=== PATIENT | female | born 1960 | race Caucasian/White ===

== ENCOUNTER 2019-03-24 05:36 | Inpatient (IN) | payer BC, OTHER ==
[2019-03-07 13:17] LABS: HEMATOCRIT 38.8 % (37.0-47.0); HEMOGLOBIN 12.6 gm/dL (12.0-15.0); MCH 30.3 pg (26.0-34.0); MCHC 32.6 g/dL (28.0-37.0); MCV 93.2 fL (80.0-100.0); RBC 4.16 mil/uL (4.20-5.00); RDW 13.4 % (10.5-14.5); WBC 5.3 thou/uL (4.0-11.0)
[2019-03-07 13:23] LABS: URINE BILIRUBIN NEGATIVE (Negative); URINE BLOOD NEGATIVE (Negative); URINE CLARITY CLEAR; URINE COLOR YELLOW; URINE GLUCOSE-RANDOM* NEGATIVE (Negative); URINE KETONES NEGATIVE (Negative); URINE LEUKOCYTES-REFLEX NEGATIVE (Negative); URINE NITRITE-REFLEX NEGATIVE (Negative); URINE PROTEIN (DIPSTICK) NEGATIVE (Negative); URINE SPECIFIC GRAVITY <= 1.005 (1.005-1.035); URINE UROBILINOGEN 0.2 E.U./dl (0.2-1.0)
[2019-03-07 13:24] LABS: ALBUMIN 3.8 g/dL (3.4-5.0); CALCIUM 9.5 mg/dL (8.5-10.1); CREATININE 0.7 mg/dL (0.6-1.0); POTASSIUM 4.1 mmol/L (3.5-5.1)
[2019-03-07 13:25] LABS: INR 1.1; PROTIME 11.2 Seconds (9.3-11.4)
[~2019-03-24] VITALS: Ht 121.9 cm; Wt 80.3 kg
[~2019-03-24 05:36] MED LIST: MIRAPEX1 MG PO; MOBIC15 MG PO; NORCO 5-325 TA1 EAC1 PO; PROAIR DIGIHAL90 MCG INH; PROZAC40 MG PO
[2019-03-24 06:10] VITALS: BP 161/85
--- NOTE | 2019-03-24 10:46 | O ---
[facility] [place] [address] OPERATIVE REPORT Name: MELINA HUERTA Room #: 150-1 ADM IN M.R.#: [id number] Admission: 03/24/19 Attend Phys: Carl Borrego MD Discharge: Date of : 56 Report #: [id number] THIS REPORT FOR: //name// CC: Carl Borrego Quoc Box DATE OF SERVICE: 03/24/2019 PREOPERATIVE DIAGNOSIS: End-stage degenerative arthritis, left hip. POSTOPERATIVE DIAGNOSIS: End-stage degenerative arthritis, left hip. PROCEDURE: Left total hip arthroplasty. SURGEON: Carl Borrego MD INDICATIONS: This 58-year-old female has chronic pain management issues with fibromyalgia, but also has severe degenerative arthritis in multiple joints. The left hip is the most severe at this point and she has decided to go ahead with left total hip arthroplasty. DESCRIPTION OF PROCEDURE: The patient was taken to the operating room where she was placed under general anesthesia. Prophylactic intravenous antibiotics were administered. She was turned to the right lateral decubitus position. The left hip, thigh and leg were meticulously prepped and draped. A slightly curving posterolateral skin incision was made centered over the greater trochanter. This was carried through fascia exposing the posterior aspect of the hip joint. The short external rotators and capsule were taken down and preserved and tagged with several #1 FiberWire sutures. The hip was dislocated. Marked degenerative change on the femoral head and acetabulum was noted. A femoral neck osteotomy was performed and the canal was opened with reamers and hand broaches. The Morillo and Nephew hip system was utilized. A size 14 Synergy porous stem seemed to fit most appropriately. The calcar was trimmed down to an appropriate level. The trial broach was removed and attention directed to the acetabulum. Good exposure was established and the acetabulum was sequentially reamed, gradually advancing to a size 52 mm reamer. A Morillo and Nephew size 52 outside diameter three-hole hemispherical StikTite coated shell was inserted. This was positioned in alignment with her true acetabulum, advancing slightly into more anteversion. The cup had good coverage and seemed to be well positioned. It was impacted into place and seated nicely and appeared to be secure. In addition, three screws were placed through the apical holes engaging satisfactory periacetabular bone with good purchase. A 36-mm diameter polyethylene shell was then inserted, placing the 20-degree elevated rim at about the 9 or 10 o'clock posterior position. This seated nicely and appeared to be secure. [facility] [address] [place] [address] OPERATIVE REPORT Name: MELINA HUERTA Room #: 150-1 [facility] IN [facility].#: [id number] Admission: 03/24/19 Attend Phys: Carl Borrego MD Discharge: Date of : 56 Report #: [id number] A trial reduction was then performed. The size 14 stem with a high offset neck angle and an 8 mm neck length seemed to fit most appropriately. This resulted in satisfactory hip stability, range of motion, alignment, and leg length. The trial broach was removed and the permanent Morillo and Nephew size 14 Synergy porous high offset stem was inserted. This was placed in about 15-20 degrees of anteversion. It seated nicely and appeared to be secure. A trial reduction again confirmed that a +8 mm neck length seemed to fit most appropriately. The trial head was removed and the permanent Oxinium 36 mm head using a +8 mm neck length was then inserted. This was gently tapped on to the Mooney taper neck. It seated nicely and appeared to be secure. The hip was then reduced. Alignment, range of motion, stability and leg length were assessed and felt to be satisfactory. The short external rotators and capsule were then repaired back to bone using the #1 FiberWire sutures, which were passed through small drill holes in the greater trochanter. This resulted in satisfactory hip stability. The wound was copiously irrigated. Good hemostasis was confirmed. A single Hemovac was left in the wound exiting through a separate stab incision. The fascia was closed with multiple #1 Vicryl sutures. The adipose tissue and subcutaneous tissues were closed with 0 Monocryl. The skin was closed with skin jl. A sterile dressing was applied. The patient was awakened and returned to recovery room in good condition. <ELECTRONICALLY SIGNED> By: Carl Borrego MD 03/24/19 1046 0929 0951 Carl Borrego MD /nt
[2019-03-24 16:40] VITALS: BP 141/90
[2019-03-24 22:05] VITALS: BP 98/58
[2019-03-25 00:19] VITALS: BP 91/44
[2019-03-25 04:00] VITALS: BP 137/67
[2019-03-25 06:15] LABS: HEMATOCRIT 26.4 % (37.0-47.0); HEMOGLOBIN 8.8 gm/dL (12.0-15.0); MCH 31.4 pg (26.0-34.0); MCHC 33.3 g/dL (28.0-37.0); MCV 94.2 fL (80.0-100.0); RBC 2.8 mil/uL (4.20-5.00); RDW 13.3 % (10.5-14.5); WBC 5.2 thou/uL (4.0-11.0)
[2019-03-25 07:45] LABS: POTASSIUM 3.6 mmol/L (3.5-5.1)
[2019-03-25 08:41] VITALS: BP 137/67
[2019-03-25 09:03] VITALS: BP 112/62
[2019-03-25 20:10] VITALS: BP 131/67
[2019-03-26 02:32] VITALS: BP 124/65
[2019-03-26 04:15] VITALS: BP 136/63
[2019-03-26 05:05] LABS: HEMATOCRIT 27.9 % (37.0-47.0); HEMOGLOBIN 9.3 gm/dL (12.0-15.0); MCH 31.4 pg (26.0-34.0); MCHC 33.2 g/dL (28.0-37.0); MCV 94.4 fL (80.0-100.0); RBC 2.96 mil/uL (4.20-5.00); RDW 13.4 % (10.5-14.5); WBC 6.3 thou/uL (4.0-11.0)
[2019-03-26 05:17] LABS: CALCIUM 8.6 mg/dL (8.5-10.1); CREATININE 0.6 mg/dL (0.6-1.0); MAGNESIUM 1.8 mg/dL (1.8-2.4); POTASSIUM 3.4 mmol/L (3.5-5.1)
[2019-03-26 08:23] VITALS: BP 122/67
[2019-03-26 17:02] VITALS: BP 108/57
[2019-03-26 19:50] VITALS: BP 121/70
[2019-03-27 04:49] LABS: HEMATOCRIT 26.2 % (37.0-47.0); HEMOGLOBIN 8.6 gm/dL (12.0-15.0); MCH 31.1 pg (26.0-34.0); MCHC 32.9 g/dL (28.0-37.0); MCV 94.4 fL (80.0-100.0); RBC 2.77 mil/uL (4.20-5.00); RDW 13.1 % (10.5-14.5); WBC 5.2 thou/uL (4.0-11.0)
[2019-03-27 04:53] LABS: CALCIUM 8.7 mg/dL (8.5-10.1); CREATININE 0.6 mg/dL (0.6-1.0); MAGNESIUM 1.9 mg/dL (1.8-2.4); POTASSIUM 3.8 mmol/L (3.5-5.1)
[2019-03-27 08:33] VITALS: BP 136/79
[2019-03-27 17:26] VITALS: BP 95/64
[2019-03-27 19:20] VITALS: BP 100/55
[2019-03-28 03:41] VITALS: BP 117/63
[2019-03-28 12:08] VITALS: BP 137/67
[2019-03-28 13:44] VITALS: BP 137/67
[2019-03-28 15:03] VITALS: BP 137/67
[2019-03-28 16:00] VITALS: BP 137/67
--- NOTE | 2019-03-29 18:46 | D ---
[facility] [place] [address] DISCHARGE SUMMARY Name: MELINA HUERTA Room #: 440-P [facility] IN M.R.#: [id number] Admission: 03/24/19 Attend Phys: Carl Borrego MD Discharge: 03/28/19 Date of : 56 Report #: [id number] THIS REPORT FOR: //name// CC: Carl Borrego Quoc Box DATE OF SERVICE: 03/28/2019 FINAL DIAGNOSIS: End-stage degenerative arthritis, left hip. OPERATION AND PROCEDURES: Left total hip arthroplasty. HISTORY OF PRESENT ILLNESS: This 58-year-old female has severe degenerative arthritis involving both hips with symptoms, greatest on the left side. She is admitted for left total hip replacement. HOSPITAL COURSE: The patient was admitted and taken to the operating room on 03/24. She underwent left total hip arthroplasty, which she tolerated well. Postoperatively, she did have moderate output through the Hemovac and her hemoglobin dipped down to about 8.8. This responded with time and IV fluids. Her pain was difficult to manage given chronic history of pain syndrome and fibromyalgia. She was able to manage with oral hydrocodone and made some slow progress. She was also moderately weak and slow with therapy and was also somewhat limited because of severe degenerative arthritis in the opposite right hip as well. Nevertheless, she seems to be making satisfactory progress and is sufficiently stable and functional to allow for hospital discharge at this time. She notes she does have some family assistance, but will also plan to have some visiting therapy at home. DISCHARGE MEDICATIONS: Include hydrocodone 10 mg 4 times daily as needed, Prozac 40 mg daily, Mirapex 1 mg daily, Xarelto 10 mg daily. She will continue with a walker for balance, but weightbearing as tolerated. She may advance activity as comfort and strength will allow. DISCHARGE INSTRUCTIONS: She will continue a regular diet. I will plan to see her back in my office this week and then again the following week for suture removal. <ELECTRONICALLY SIGNED> By: Carl Borrego MD 03/29/19 1846 1158 2036 Carl Borrego MD /nt
== END 2019-03-28 15:08 | disposition home health service (06) | DRG 470 ==
LOC: TBA 05:36 → PRE 09:32 → 4S 11:26 → PRE 11:37 → 4S 03-28 15:08
PROVIDERS: Internal Medicine; Nurse Practitioner Family; ADMIT Orthopaedic Surgery
PROC: 0SRB06Z Replacement of Left Hip Joint with Oxidized Zirconium on Polyethylene Synthetic Substitute, Open Approach (ICD-10-PCS; principal; 2019-03-24)
DX: M16.0 Bilateral primary osteoarthritis of hip (principal); G89.4 Chronic pain syndrome; M79.7 Fibromyalgia; J45.909 Unspecified asthma, uncomplicated; Z79.899 Other long term (current) drug therapy
CPT/HCPCS: 10102; 50010; 50101; 50382; 50414; 51412; 53000; 53368; 56521; 56525; 56530; 57095; 62110; 62900; 70005

== ENCOUNTER 2019-08-15 06:13 | Inpatient (IN) | payer BC, OTHER ==
--- NOTE | 2019-08-03 09:04 | EKG ---
[facility] [place] [address] ELECTROCARDIOGRAM REPORT Name: MELINA HUERTA Room #: PRE IN ..#: [id number] Admission: Attend Phys: Carl Borrego MD Discharge: Date of : 56 Report #: [id number] THIS REPORT FOR: cc: FAM - Family physician unknown FAM - Family physician unknown Solitario Ugalde MD [facility] ~ THIS REPORT FOR: //name// [facility] Test Date: 2019-08-03 Test Time: 08:32:55 Pat Name: MEILNA HUERTA Department: Room: Gender: F Home Service Technician: Ramiro PRIETO : 1960 Requested By: Carl Borrego Order Number: [id number] MD: Solitario Ugalde Measurements Intervals [place] Rate: 80 P: 34 IN: 173 QRS: -9 QRSD: 98 T: 30 QT: 379 QTc: 438 Interpretive Statements Sinus rhythm Normal tracing No previous ECG available for comparison Electronically Signed On 08-03-2019 9:02:17 CDT by Solitario Ugalde [email or web address] <ELECTRONICALLY SIGNED> By: Solitario Ugalde MD, [facility] 08/03/1902 1 1 Solitario Uglade MD, [facility] /EPI
[2019-08-03 09:35] LABS: HEMATOCRIT 39.8 % (37.0-47.0); HEMOGLOBIN 12.9 gm/dL (12.0-15.0); MCH 26.4 pg (26.0-34.0); MCHC 32.3 g/dL (28.0-37.0); MCV 81.6 fL (80.0-100.0); RBC 4.87 mil/uL (4.20-5.00); RDW 20.7 % (10.5-14.5); WBC 4.6 thou/uL (4.0-11.0)
[2019-08-03 09:41] LABS: URINE BILIRUBIN NEGATIVE (Negative); URINE BLOOD NEGATIVE (Negative); URINE CLARITY CLEAR; URINE COLOR YELLOW; URINE GLUCOSE-RANDOM* NEGATIVE (Negative); URINE KETONES NEGATIVE (Negative); URINE LEUKOCYTES-REFLEX NEGATIVE (Negative); URINE NITRITE-REFLEX NEGATIVE (Negative); URINE PROTEIN (DIPSTICK) NEGATIVE (Negative); URINE UROBILINOGEN 0.2 E.U./dl (0.2-1.0)
[2019-08-03 09:47] LABS: INR 1.1; PROTIME 11.7 Seconds (9.3-11.4)
[2019-08-03 09:55] LABS: ALBUMIN 3.9 g/dL (3.4-5.0); CALCIUM 9.1 mg/dL (8.5-10.1); CREATININE 0.7 mg/dL (0.6-1.0); POTASSIUM 4.6 mmol/L (3.5-5.1)
[2019-08-15] VITALS (7 sets, daily range): BP systolic 104–140; BP diastolic 58–87
[~2019-08-15] VITALS: Ht 162.6 cm; Wt 77.1 kg
[~2019-08-15 06:13] MED LIST changes: +HYDROCODON-ACE1 EAC8 PO; +MELOXICAM15 MG PO
--- NOTE | 2019-08-15 08:23 | NUR ---
SPIRITUAL CARE- PRE-SURGERY VISIT WAS COMPLETED WITH PATIENT AND DAUGHTER BY THIS MACHINIST/MACHINE BUILDER.
--- NOTE | 2019-08-15 12:10 | O ---
[facility] [place] [address] OPERATIVE REPORT Name: MELINA HUERTA Room #: 448-P ADM IN M.R.#: [id number] Admission: 08/15/19 Attend Phys: Carl Borrego MD Discharge: Date of : 56 Report #: [id number] THIS REPORT FOR: cc: ANASTACIA - Family physician unknown ANASTACIA - Family physician unknown Carl Borrego MD ~ CC: Carl GALAVIZ unknown Quoc Box DATE OF SERVICE: 08/15/2019 PREOPERATIVE DIAGNOSIS: End-stage degenerative arthritis, right hip with moderate chronic acetabular dysplasia. POSTOPERATIVE DIAGNOSIS: End-stage degenerative arthritis, right hip with moderate chronic acetabular dysplasia. PROCEDURE: Right total hip arthroplasty. SURGEON: Carl Borrego MD INDICATIONS: This 59-year-old female has chronic degenerative arthritis involving both hips. She underwent left total hip replacement several months ago with good result. She returns now for right hip replacement. Clinical exam and x-rays confirm severe end-stage degenerative change with moderate acetabular dysplasia with a shallow cup and moderate spurring at the margin. She has limited if any remaining cartilage. There is moderate deformity of the femoral head. DESCRIPTION OF PROCEDURE: The patient was taken to the operating room where she was placed under general anesthesia. Prophylactic intravenous antibiotics were administered. She was turned to the left lateral decubitus position. The right hip, thigh and leg were meticulously prepped and draped. A slightly curving posterolateral skin incision was made centered over the greater trochanter. This was carried through subcutaneous tissues and fascia. The gluteus was split longitudinally exposing the posterior aspect of the hip joint. The short external rotators and capsule were taken down and preserved and tagged with several #1 Tevdek sutures. The hip was dislocated posteriorly. Marked deformity and degenerative change on the femoral head was noted. A femoral neck osteotomy was performed. The canal was prepared with reamers and hand broaches using the Morillo and NephTOSA ([employer]) hip system. A size 13 press-fit stem seemed to fit most appropriately. The trial stem was removed and attention directed to the acetabulum. Exposure and preparation was difficult as there was significant acetabular dysplasia with a rather shallow cup. Once adequate exposure was established, the reaming was directed medially to allow for better coverage. [address] [address] OPERATIVE REPORT Name: MELINA HUERTA Room #: 448-P [facility] IN M.R.#: [id number] Admission: 08/15/19 Attend Phys: Carl Borrego MD Discharge: Date of : 56 Report #: [id number] This extended to the inner wall of the acetabulum, but did not penetrate more medially. There was still good bone strength in the medial aspect of the acetabulum. The acetabulum was then sequentially reamed, gradually advancing to a 50 mm reamer. This left adequate rim at the superior and posterior aspect, although it is rather atrophied and dysplastic acetabulum making fit and fixation somewhat difficult. A Morillo and Nephew StikTite 3-hole 50 mm acetabular shell was then inserted. This was positioned so that it could optimally engage periacetabular bone for secure fixation. This placed the cup in a slightly more vertical position than was optimal, but still seems acceptable for coverage and position. It seated nicely and appeared to be secure. Two cancellous screws were placed, each with good purchase, which seemed to further stabilize the liner. A 32 mm polyethylene insert was then applied, placing the 20-degree elevated siddiqi at about the 9 o'clock posterior position. It seated nicely and appeared to be secure. The permanent size 13 Morillo and Nephew Synergy porous high offset femoral stem was inserted. This seated nicely and appeared to be secure. A trial reduction was performed and the +8 mm neck length seemed to fit most appropriately. This resulted in satisfactory alignment and stability and leg length. The +8 mm Oxinium head was selected. This was impacted on the Mooney taper neck and the hip was reduced. Once again alignment, range of motion, stability and leg length were assessed and felt to be satisfactory. The capsule and short external rotators were then repaired back to the greater trochanter using #1 Tevdek sutures, passed through small drill holes in the bone. This resulted in very satisfactory additional hip stability. A single Hemovac was left in the wound exiting through a separate stab incision. The fascia was closed with multiple #1 Vicryl sutures. The adipose tissues and subcutaneous tissues were closed with 0 Monocryl. The skin was closed with skin jl. A sterile dressing was applied. The patient was awakened and returned to recovery room in good condition. <ELECTRONICALLY SIGNED> By: Carl Borrego MD 08/15/19 1210 0949 1000 Carl Borrego MD /nt
--- NOTE | 2019-08-15 13:53 | NUR ---
PATIENT ARRIVED ON THE UNIT AT 1125 FROM OR, RIGHT TOTAL KNEE REVISION, WITH RADHA DRESSING, AZAM HOSE, SCD'S, AND POLAR PACK IN PLACE. PATIENT HAS RIGHT FOREARM IV IN PLACE. PATIENT HAS HEMOVAC IN PLACE, EMPTIED BY THIS RN. PATIENT GIVEN MORPHINE 2 MG IV WITH ADMISSION. ADMISSION DONE, EXCEPT CAREPLAN. REPORT GIVEN TO PRABHU/RN. WILL CONTINUE TO MONITOR. WELCOME PACK GIVEN.
--- NOTE | 2019-08-16 03:42 | NUR ---
ASSESSMENT COMPLETED. PT ALERT AND ORIENTED. SHE HAS BEEN IN EXCRUCIATING PAIN ALL ALONG SHIFT. C/O STABBING/SHARP PAIN TO R HIP AND BUTTOCK AREA. BOTH IV AND ORAL PAIN MEDS GIVEN, THTH TO BLE. SCDS TO BLE, PT C/O CHRONIC NUMBNESS TO LLE SO TOOK OFF THE SCD. I OBSERVED PATIENT FALLING ASLEEP RIGHT AFTER I GAVE HER PAIN MEDS. PAIN MEDS SUSTAINING HER FOR ONLY ABOUT 2 HRS THEN SHE WILL BE CRYING. SHE HAS BEEN TO THE BSC-AND MY CO WORKERS HELPED HER, SHE WAS YELLING AND IT WAS REALLY DIFFICULT.PT AT THIS TIME IS OBSERVED IN BED WITH EYES ASLEEP. DENIES GI OR DISCOMFORT.AFEBRILE. HEMOVAC WITH 200CC OUT SO FAR.WILL CONTINUE WITH POC TILL EOS.
[2019-08-16 04:26] VITALS: BP 104/54
[2019-08-16 06:27] LABS: HEMOGLOBIN 8.5 gm/dL (12.0-15.0); MCH 27.5 pg (26.0-34.0); MCHC 32.7 g/dL (28.0-37.0); MCV 84.1 fL (80.0-100.0); RBC 3.09 mil/uL (4.20-5.00); RDW 20.4 % (10.5-14.5)
[2019-08-16 08:01] VITALS: BP 109/64
[2019-08-16 08:52] LABS: CREATININE 0.6 mg/dL (0.6-1.0); MAGNESIUM 1.6 mg/dL (1.8-2.4); POTASSIUM 3.7 mmol/L (3.5-5.1)
[2019-08-16 17:25] VITALS: BP 116/70
--- NOTE | 2019-08-16 18:29 | NUR ---
ASSUMED PATIENT CARE AT 0700. AXO X 4. SEVERE PAIN TO RIGHT HIP, PATIENT DESCRIBES SHARP, STABBING PAIN. PAIN RELIEVED BY PAIN MEDICINE TO SOME EXTENT AND CHANGING POSITION.PATIENT IS RESTLESS, WANTS TO CHANGE POSITION. 1 PERSON ASST TO BEDSIDE COMMODE OR BATHROOM TOLERATED. WORKED WITH PT TO THE BATHROOM. HEMOVAC REMOVED SCD'S IN PLACE, IV RT FOREARM. CALL LIGHT IN REACH, BED IN LOW POSITION, PATIENT WILL CALL FOR HELP. WILL CONTINUE TO MONITOR.
[2019-08-16 19:27] VITALS: BP 112/59
--- NOTE | 2019-08-17 02:18 | NUR ---
RECIEVED CARE OF THIS PATIENT AT 1900. PAITENT ALERT AND ORIENTED X4. HAS RADHA DRESSING ON R HIP THAT HAS SMALL AMOUNT OF DRIED BLOOD ON IT. PATIENT C/O PAIN. MED GIVEN WELL A MUSCLE RELAXANT. UP TO BATHROOM WITH WALKER AND ASSIST OF ONE. PATIENT HAS 2 PIV'S, ONE IN HER REJ AND THE OTHER IS IN HER RFA. ICE APPLIED TO SURGICAL SITE.
[2019-08-17 05:31] VITALS: BP 115/69
[2019-08-17 05:43] LABS: ABSOLUTE NEUTROPHILS 4.8 thou/uL (1.4-8.2); BASOPHILS 0.2 % (0.0-2.0); EOSINOPHILS 0.3 % (0.0-3.0); HEMATOCRIT 27.7 % (37.0-47.0); HEMOGLOBIN 9.1 gm/dL (12.0-15.0); MCH 27.7 pg (26.0-34.0); MCV 84.1 fL (80.0-100.0); MONOCYTES 9.5 % (1.0-8.0); PLATELET COUNT 112 thou/uL (150-400); RBC 3.29 mil/uL (4.20-5.00); RDW 19.9 % (10.5-14.5); WBC 6.4 thou/uL (4.0-11.0)
[2019-08-17 06:06] LABS: CALCIUM 8.3 mg/dL (8.5-10.1); CREATININE 0.5 mg/dL (0.6-1.0); MAGNESIUM 1.8 mg/dL (1.8-2.4); POTASSIUM 3.7 mmol/L (3.5-5.1)
[2019-08-17 07:10] VITALS: BP 114/71
--- NOTE | 2019-08-17 15:17 | NUR ---
ASSESSMENT: CM REVIEWED CHART AND SPOKE WITH PT. PT REPORTS THAT SHE LIVES IN A HOUSE WITH HER MOTHER AND GRANDDAUGHTER. PT REPORTS SHE WAS NORMALLY INDEPENDENT WITH ADLS BUT HAS A WALKER AND CANE AT HOME. PT REPORTS THAT SHE IS INDEPENDENT WITH ADLS AND HAS A WALKIN SHOWER. CM DISCUSSED ROLE. PHYSICAL THERAPY SAW PT AND RECOMMENDING HH. PT STATING SHE DOES NOT FEEL SHE NEEDS HH AT THIS TIME. PT REPORTS SHE HELPS TAKE CARE OF HER MOTHER AND SHE REPORTS SHE DOES NOT NEED HH. PT DECLINING HH. CM WILL CONTINUE TO FOLLOW TO ASSIST NEEDED.
[2019-08-17 16:00] VITALS: BP 93/59
[2019-08-17 20:13] VITALS: BP 95/60
--- NOTE | 2019-08-17 20:36 | NUR ---
ASSUMED PATIENT CARE AROUND 0700. PT A X O X4. PATIENT REPORTING SEVERE PAIN RT HIP, PAIN PARTIALLY CONTROLLED BY PAIN MEDS. PATIENT IS 1 PERSON ASST. IV RT FORE ARM AND RT EXT JUGULR. SCD'S IN PLACE, ICE APPLYING. PATIENT SAID, SHE IS COMMUNICATING HER COND WITH FAMILY. CALL LIGHT IN REACH, BED IN LOW POSITION, WILL CALL FOR HELP.
[2019-08-18 05:13] VITALS: BP 142/82
[2019-08-18 06:05] LABS: HEMATOCRIT 26.3 % (37.0-47.0); HEMOGLOBIN 8.6 gm/dL (12.0-15.0); MCH 27.6 pg (26.0-34.0); MCHC 32.6 g/dL (28.0-37.0); MCV 84.7 fL (80.0-100.0); RBC 3.11 mil/uL (4.20-5.00); RDW 19.8 % (10.5-14.5); WBC 5.7 thou/uL (4.0-11.0)
[2019-08-18 07:00] VITALS: BP 147/87
--- NOTE | 2019-08-18 07:41 | NUR ---
RECIEVED CARE OF THIS PATIENT AT 1900. PATIENT ALERT AND ORIENTED X4. C/O PAIN IN VARIOUS PLACES, NOT JUST IN HER HIP WHERE SHE HAS SURGERY. DRESSING ON R HIP INTACT WITH SMALL AMOUT OF DRIED BLOOD. PIV IN HER RFA AND REJ. SLEEPS IN CHAIR MOST OF THE TIME. SLEPT OFF AND ON DURING NIGHT.
[2019-08-18 11:50] VITALS: BP 94/60
[2019-08-18 15:05] VITALS: BP 147/87
[2019-08-18 19:57] VITALS: BP 107/67
--- NOTE | 2019-08-18 20:19 | NUR ---
VSS-AFEBRILE. LUNGS CLEAR-ROOM AIR. DIFFICULTY MANAGING PAIN THIS AM, BUT PAIN MUCH BETTER CONTROLLED THIS AFTERNOON, WAS ABLE TO SLEEP FOR A COUPLE OF HOURS. OOB WITH 1 ASSIST TO USE BSC, UNSTEADY ON FEET. POOR APPETITE DUE TO PAIN. CALLS APPROPRIATELY FOR ANY NEEDED ASSISTANCE.
--- NOTE | 2019-08-19 04:04 | NUR ---
ASSUMED PT CARE AT 1900. PT IN HIGHER SPIRITS THAN DURING THE DAY. DRESSING D/C/I. PAIN BEING MANAGED WITH PO AND IV MEDS. PT WAS ABLE TO GET SOME SLEEP TONIGHT. PLAN IS TO GO HOME TOMORROW.
[2019-08-19 04:32] VITALS: BP 128/80
[2019-08-19 08:04] VITALS: BP 116/73
[2019-08-19 10:01] VITALS: BP 147/87
--- NOTE | 2019-08-19 11:02 | NUR ---
Assumed care of pt at 0700. Pt a&ox4. Pain states pain control is better today. Physical therapy states pt is safe to discharge home. Old drainage on dressing. SBA with walker and gaitbelt to the toilet. Pt will discharge home with home health. Home walker in the room. Fall precautions in place.
--- NOTE | 2019-08-19 11:53 | D ---
[facility] [place] [address] DISCHARGE SUMMARY Name: MELINA HUERTA Room #: 448-P ADM IN M.R.#: [id number] Admission: 08/15/19 Attend Phys: Carl Borrego MD Discharge: Date of : 56 Report #: [id number] THIS REPORT FOR: cc: ANASTACIA - Family physician unknown ANASTACIA - Family physician unknown Carl Borrego MD ~ THIS REPORT FOR: //name// CC: Carl GALAVIZ unknown Quoc Box FINAL DIAGNOSIS: End-stage degenerative arthritis, right hip. OPERATION PROCEDURES: Right total hip arthroplasty. HISTORY OF PRESENT ILLNESS: This frail 59-year-old female has a history of chronic degenerative arthritis and also some chronic pain syndrome with fibromyalgia and chronic narcotic use. She underwent previous left total hip replacement with good result. She returned to the hospital now for right total hip replacement. HOSPITAL COURSE: The patient was admitted and taken to the operating room on 08/15/2019. She underwent right total hip replacement. She tolerated this generally well, but did have quite a bit of postoperative pain, which required extensive narcotic medications and a lot of assistance from nursing and therapy. Gradually, she was able to taper back to her routine regimen of hydrocodone 7.5 mg 4 times daily. She was able to resume her other routine medications. She was able to resume a regular diet. At this time, she is able to stand or walk with a walker with moderate assistance. She is taking her diet nicely. She feels she probably can manage at home with significant additional family assistance. They have made arrangements for transportation and discharged home on Thursday08/19/2019. There she will continue her routine hydrocodone 7.5 mg 4 times daily and Xarelto 10 mg daily. She will continue a regular diet. She will continue with her routine home exercise with family assistance. If necessary, we may have some visiting home therapy or eventual outpatient therapy, but at this point, she feels she can probably manage on her own with family assistance. I have asked her to call me [facility] [place] [address] [place] [address] DISCHARGE SUMMARY Name: MELINA HUERTA Room #: 448-P [facility] IN M.R.#: [id number] Admission: 08/15/19 Attend Phys: Carl Borrego MD Discharge: Date of : 56 Report #: [id number] if any problems or questions. I will plan to see her back in my office in 1 week for routine followup. <ELECTRONICALLY SIGNED> By: Carl Borrego MD 08/19/19 1153 1657 1706 Carl Borrego MD /nt
[2019-08-19] MEDS ORDERED: ZANAFLEX4 MG PO (12:11)
[2019-08-19] MEDS ORDERED: VITAMIN B-12500 MCG PO (12:11)
[2019-08-19] MEDS ORDERED: VITAMIN D21250 MC1 PO (12:11)
[2019-08-19] MEDS ORDERED: IRON325 PO (12:11)
[2019-08-19] MEDS ORDERED: MIRALAX17 GM PO (12:11)
[2019-08-19] MEDS ORDERED: SENNA8.6 MG PO (12:12)
[2019-08-19] MEDS ORDERED: XARELTO10 MG PO (12:12)
--- NOTE | 2019-08-19 12:35 | NUR ---
ON-GOING ASSESSMENT: CM REVIEWED CHART. PT HAS ORDERS TO DISCHARGE TODAY WITH HH. CM CONTACTED [facility] TO NOTIFY THEM WELL FAXED DISCHARGE ORDERS. CM NOTIFIED BEDSIDE RN. PT DID NOT ANSWER THE PHONE IN HER ROOM.
== END 2019-08-19 12:55 | disposition home health service (06) | DRG 470 ==
LOC: TBA 06:13 → 4S 11:37 → TBA 12:44 → 4S 08-19 12:55
PROVIDERS: Nurse Practitioner; ADMIT Orthopaedic Surgery
PROC: 0SR906A Replacement of Right Hip Joint with Oxidized Zirconium on Polyethylene Synthetic Substitute, Uncemented, Open Approach (ICD-10-PCS; principal; 2019-08-15)
DX: M16.11 Unilateral primary osteoarthritis, right hip (principal); D62 Acute posthemorrhagic anemia; J45.909 Unspecified asthma, uncomplicated; F32.9 Major depressive disorder, single episode, unspecified; G25.81 Restless legs syndrome; I10 Essential (primary) hypertension; Z96.642 Presence of left artificial hip joint; E83.42 Hypomagnesemia; M79.7 Fibromyalgia; H81.09 Meniere's disease, unspecified ear; Z20.828 Contact with and (suspected) exposure to other viral communicable diseases; Z87.891 Personal history of nicotine dependence; Z79.899 Other long term (current) drug therapy
CPT/HCPCS: 10102; 50010; 50101; 50382; 50414; 51412; 51771; 53368; 56521; 56525; 56527; 57095; 57103; 57104; 62110; 62900; 70005

== ENCOUNTER 2019-09-13 10:42 | Inpatient (IN) | payer BC, OTHER ==
[~2019-09-13] VITALS: Ht 165.1 cm; Wt 77.1 kg
--- NOTE | ~2019-09-13 | HC ---
[facility] [place] [address] CONSULTATION Name: MELINA HUERTA Room #: 460-P ADM IN M.R.#: [id number] Admission: 09/13/19 Attend Phys: Luciano Cross, Discharge: Date of : 56 Report #: [id number] THIS REPORT FOR: cc: Quoc Zheng MD, Mark S. MD Smithson, David G. MD ~ CC: Chelsie Zheng DATE OF SERVICE: 09/19/2019 HISTORY OF PRESENT ILLNESS: The patient is a 59-year-old white female who had a fall from standing level and had 3 falls in the last 2 days prior to admission. This was a ground level fall. She was down on the ground approximately 20 minutes after the fall. She complained of right femur pain, was diagnosed with a right proximal femur fracture with loosening and a failed total hip replacement. She underwent ORIF of the right femur fracture with revision total hip replacement on 09/14/[address] Borrego. She is limited to less than 20 pounds weightbearing on the right lower extremity. Her course was complicated by bilateral foot drop, left greater than right and Neurology has seen her. There is a question of neuropathy. She had a recent MRI of her lumbar spine, which she noted was negative and there are orders for MRI of the head and cervical spine currently pending. Plan is for possible EMGs as an outpatient. She also has chronic fibromyalgia. She is having considerable pain complaints with the primary service trying to assist her in this regard. 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 She had some left wrist discomfort during this current fall, but x-rays were negative and she was placed in a wrist splint. She indicates a prior history of a left total hip replacement in the past as well. Also includes fibromyalgia, restless leg syndrome, osteoarthritis, Meniere's disease, asthma, depression, and hypertension. MEDICATIONS: Please see the full medication listing. ALLERGIES: No known drug allergies. SOCIAL HISTORY: Lives with her mother and her granddaughter in a house with a stair glide. She was utilizing a roller walker prior and also had a cane. HABITS: Tobacco abuse, half pack per day for 30 years, quit greater than a year ago. No history of alcohol abuse. [address] [address] CONSULTATION Name: MELINA HUERTA Room #: 460-P [facility] IN ..#: [id number] Admission: 09/13/19 Attend Phys: Luciano Cross, Discharge: Date of : 56 Report #: [id number] REVIEW OF SYSTEMS: Did not offer any current complaints of chest pain, shortness of breath or abdominal discomfort. PHYSICAL EXAMINATION: GENERAL: A 59-year-old white female in no obvious distress. VITAL SIGNS: Last recorded temperature 97.7, pulse 89, respirations 16, and blood pressure 123/88. NEUROLOGIC: The patient is alert, was initially teary eyed with some pain complaints, but with distraction and working with her she seemed to be doing better. Facies appeared symmetric. She has a left wrist splint in place, can move the thumb and fingers without obvious focal weakness. Functional range of motion of that left upper extremity strength is grade 4-/5. Functional range of motion of the right upper extremity, strength is grade 4-/5. Left lower extremity does reveal a left foot drop with dorsiflexor and everter weakness appear less than antigravity. Sensation is somewhat decreased to proprioception. Proximal strength is more of a grade 4-/5, right lower extremity. The hip is dressed, had tried to dorsiflex the right ankle and appears to probably be at 3/5. It was difficult for her to move that right lower extremity with the pain. Functionally, she has been max assist coming to stand, has been unable to take any type of a step at this point. She has the left foot drop. She has been dependent, lower body dressing, mod assist, and upper body dressing. ASSESSMENT: A 59-year-old white female with the following problem list: 1. Right proximal femur fracture with loosening of a failed total hip arthroplasty, now status post open reduction and internal fixation of right femur fracture with revision total hip arthroplasty 09/14/2019 limited to less than 20 pounds weightbearing right lower extremity. 2. Left foot drop has apparent neuropathy with peroneal nerve palsy. Neurology is evaluating. MRI of the brain and C-spine are currently pending. May need EMGs as an outpatient. 3. Prior left total hip arthroplasty. 4. Chronic fibromyalgia. 5. Asthma. 6. Depression. 7. Restless legs syndrome. 8. Prior history of tobacco abuse. PLAN: At this point, she appears too low level to warrant an acute in-hospital inpatient rehabilitation stay. We will see what the MRI of the head and C-spine show and see if she is able to tolerate her therapies and do better as far as her functional mobility and ADLs. With the fact that she needed a gait aid prior to admission and now is limited to less than 20 pounds weightbearing on that right lower extremity. Would anticipate this is going to be more of a drawn out process and then she might benefit from a lower level therapy program. Likely, she may not be able to return back to the home setting until she is [facility] [address] [place] [address] CONSULTATION Name: MELINA HUERTA Room #: 460-P ADM IN M.R.#: [id number] Admission: 09/13/19 Attend Phys: Luciano Cross, Discharge: Date of : 56 Report #: [id number] allowed further weightbearing advancement on that right lower extremity. At this point, we will continue to follow along with you. Thank you for asking us to assist in this patient's care. By: [id number] Carl Muniz MD /nt
[~2019-09-13 10:42] MED LIST changes: +IRON325 PO; +MIRALAX17 GM PO; +SENNA8.6 MG PO; +VITAMIN B-12500 MCG PO; +VITAMIN D21250 MC1 PO; +XARELTO10 MG PO; +ZANAFLEX4 MG PO
[2019-09-13 10:44] VITALS: BP 128/83
[2019-09-13] MEDS ORDERED: ASA81BEC PO (13:55)
[2019-09-13 14:46] VITALS: BP 138/68
[2019-09-13 14:48] LABS: BASOPHILS 0.6 % (0.0-2.0); EOSINOPHILS 1.7 % (0.0-3.0); HEMATOCRIT 30.6 % (37.0-47.0); HEMOGLOBIN 10.2 gm/dL (12.0-15.0); LYMPHOCYTES 17.4 % (24.0-44.0); MCH 28.9 pg (26.0-34.0); MCHC 33.3 g/dL (28.0-37.0); MCV 86.9 fL (80.0-100.0); MONOCYTES 6.9 % (1.0-8.0); PLATELET COUNT 148 thou/uL (150-400); POLYS 73.4 % (36.0-66.0); RBC 3.52 mil/uL (4.20-5.00); RDW 18.8 % (10.5-14.5); WBC 4.1 thou/uL (4.0-11.0)
--- NOTE | 2019-09-13 14:56 | NUR ---
Attempted to call report to surgical nurse. Unable to take report Will call [facility]
[2019-09-13 14:58] LABS: CALCIUM 8.4 mg/dL (8.5-10.1); CREATININE 0.6 mg/dL (0.6-1.0); POTASSIUM 3.7 mmol/L (3.5-5.1)
[2019-09-13 15:19] VITALS: BP 116/64
[2019-09-13 15:25] LABS: ANISOCYTOSIS 1+; PLATELET ESTIMATE NORMAL
[2019-09-13 16:04] VITALS: BP 127/69
--- NOTE | 2019-09-13 16:59 | NUR ---
PATIENT ADMITTED FROM ER WITH RIGHT FEMUR FRACTURE,FELL AT HOME C/O PAIN /. MORPHINE 4MG IV ORDERED AND GIVEN DURING ADMISSION. PATIENT HAS RIGHT UPPER ARM IV WITH LR AT 75CC/HR. PATIENT HAS BRACE ON LEFT WRIST FROM FALL EARLIER THIS WEEK. DR GONSALES SAW THE PATIENT AND PUT ADMISSION ORDERS IN COMPUTER. DR GLORIA HERE THIS EVENING TO SEE THE PATIENT, WILL ORDER MORRIS CATHETER FOR IMMOBILIZATION. SWELLING TO RIGHT THIGH, AND SWELLING TO RIGHT WRIST/HAND. ADMISSION COMPLETED, PATIENT ARRIVED ON THE UNIT AT 1550. WILL REPORT TO TAMELA/RN.
--- NOTE | 2019-09-13 17:06 | EKG ---
[facility] [address] ELECTROCARDIOGRAM REPORT Name: MELINA HUERTA Room #: 440-P ADM IN M.R.#: [id number] Admission: 09/13/19 Attend Phys: Luciano Cross, Discharge: Date of : 56 Report #: [id number] THIS REPORT FOR: cc: Quoc Zheng MD, Mark S. MD Lundgren, Craig H. MD [facility] ~ THIS REPORT FOR: //name// [facility] ED Test Date: 2019-09-13 Test Time: 12:44:28 Pat Name: MELINA HUERTA Department: Room: 440 Gender: F Installation Manager: [place] : 1960 Requested By: Rin Aponte Order Number: [id number] MD: Solitario Ugalde Measurements Intervals [place] Rate: 74 P: 53 [place]: 186 QRS: 6 QRSD: 101 T: 41 QT: 381 QTc: 423 Interpretive Statements Sinus rhythm Anteroseptal infarct, age indeterminate Baseline wander in lead(s) I,III,aVL Compared to ECG 08/03/2019 08:32:55 Septal Q waves are now present Electronically Signed On 09-13-2019 17:05:41 CDT by Solitario Ugalde [email or web address] <ELECTRONICALLY SIGNED> By: Solitario Ugalde MD, [facility] 09/13/19 1705 1244 1244 Solitario Ugalde MD, [facility] /EPI
[2019-09-13 20:01] VITALS: BP 109/62
[2019-09-14 04:32] VITALS: BP 143/72
--- NOTE | 2019-09-14 05:58 | NUR ---
RECIEVED CARE OGF THIS PATIENT AT 1900. PATIENT ALERT AND ORIENTED X4. PATIENT IN SEVERE PAIN. MED GIVEN WHEN TIME. EVERY LITTLE MOVEMENT IS VERY PAINFUL TO PATIENT. REMAINS ON BEDREST. MORRIS IN PLACE AND IS PATENT YELLOW URINE. NPO SINCE MO FOR SURGERY THIS AM. IV PATENT IN [place] WITH FLUIDS INFUSING. PATIENT REFUSES SCD'S. THE R EXT HAS THE FX AND THE L LEG HAS NEUROPATHY PAIN WHEN TOUCHED. PATIENT SLEPT VERY LITTLE THIS SHIFT.
[2019-09-14 06:17] LABS: HEMOGLOBIN 10.7 gm/dL (12.0-15.0); MCHC 31.4 g/dL (28.0-37.0); MCV 89.1 fL (80.0-100.0); RBC 3.81 mil/uL (4.20-5.00); RDW 19.5 % (10.5-14.5)
[2019-09-14 06:50] LABS: ALBUMIN 2.9 g/dL (3.4-5.0); CALCIUM 8.5 mg/dL (8.5-10.1); CREATININE 0.5 mg/dL (0.6-1.0); MAGNESIUM 1.8 mg/dL (1.8-2.4); PHOSPHORUS 3.9 mg/dL (2.5-4.9)
[2019-09-14 09:52] VITALS: BP 176/93
[2019-09-14 14:45] LABS: % SATURATION 11 % (20-39); IRON 28 ug/dL (50-170); TIBC 251 ug/dL (250-450)
[2019-09-14 14:47] LABS: FOLIC ACID 9.7 ng/mL (8.6-58.9)
--- NOTE | 2019-09-14 16:27 | NUR ---
PT ADMITTED RELATED TO FRACTURE LEFT FEMUR. CM REVIEWED CHART AND SPOKE WITH CARE TEAM. CM ATTEMPTED TO VISIT PT AT BEDSIDE THIS DAY BUT PT WAS OFF UNIT FOR SURGERY. BASED ON RECORD REVIEW AND HAVING SEEN PT IN THE PAST SHE RESIDES IN A HOUSE WITH HER MOM AND GRANDAUGHTER. SHE HAD DISCHARGE HOME ON 08/18 [facility]NTO [facility]. PT HAS A FWW AND A CANE FOR HOME USE. CM TO FOLLOW INDICATED WITH DC PLANNING.
--- NOTE | 2019-09-14 18:38 | NUR ---
PT CARE ASSUMED AT 0700. A&Ox4. PT IN A LOT OF PAIN 12/23. NOT CONTROLLED BY PAIN MEDICATION CURRENTLY ORDERED. MD CONTACTED AND CHANGED TO DILAUDED Q2H. PAIN TOLERATED MUCH BETTER. PREPPED FOR SURGERY. WENT OFF OF THE FLOOR AT 1438. MORRIS IN PLACE. IV PATENT WITH NO REDNESS OR EDEMA, FLUIDS INFUSING. PT ON BEDREST CURRENTLY. FALL PROTOCOL IN PLACE. WILL CONTINUE TO MONITOR.
--- NOTE | 2019-09-14 20:32 | HC ---
[facility] [place] [address] CONSULTATION Name: MELINA HUERTA Room #: 440-P ADM IN M.R.#: [id number] Admission: 09/13/19 Attend Phys: Luciano Cross, Discharge: Date of : 56 Report #: [id number] THIS REPORT FOR: cc: Quoc Zheng MD, Mark S. MD Clymer, David J. MD ~ CC: Chelsie Zheng DATE OF SERVICE: 09/13/2019 CHIEF COMPLAINT: Right proximal femur fracture. HISTORY OF PRESENT ILLNESS: This 59-year-old female presents with chronic severe progressive degenerative arthritis of both hips. She underwent left total hip replacement a number of months ago with excellent result. She underwent right total hip replacement 4 weeks ago and was also doing quite well and was home and functioning in a satisfactory fashion. However, she has had problems with balance and weakness and is using a walker. She has some peroneal palsy problems on the opposite left side, which also create some difficulty. Apparently, she has had several falls at home and then had another significant fall earlier today resulting in a new right hip injury. She came to [facility] where x-rays confirm a fracture of the right proximal femur in the proximal metaphyseal region extending below the lesser trochanter. The femoral stem has not displaced and appears to be in unchanged position, possibly was still satisfactory fixation in the more distal canal area. There is no sign of change or injury involving the acetabulum. She has no other injuries. She is admitted for further evaluation and treatment with regard to this new periprosthetic right femur fracture. Her previous medical history is notable for chronic degenerative arthritis and recent right total hip arthroplasty. She denies any significant cardiac disease, chest pain, shortness of breath, abdominal pain or any other significant constitutional symptoms. On physical exam, she seems to have good movement in the neck and back without any new localized discomfort in those areas. She also demonstrates good movement of both upper extremities at the shoulder and elbow. On the left side, she does have some wrist discomfort and has injured that wrist in one of her recent falls, but x-rays have revealed no fracture and she is comfortable using a simple gauntlet wrist splint. She has no significant symptoms on the right side. The pelvis appears to be stable and well aligned and is not particularly tender to palpation. On the left side, her total hip replacement seemed to be functioning nicely. She has good range of motion and good stability without any apparent discomfort. The left knee demonstrates good alignment and range of motion without discomfort. The left [address] [address] CONSULTATION Name: MELINA HUERTA Room #: [address] [place] [address] IN M.R.#: [id number] Admission: 09/13/19 Attend Phys: Luciano Cross, Discharge: Date of : 56 Report #: [id number] lower leg, foot and ankle are notable for significant weakness with dorsiflexion consistent with a peroneal nerve palsy. This occurred several months after her previous total hip replacement of uncertain etiology. It appears that she is getting just a bit of dorsiflexion movement and strength back over the past week or two and possibly may be seeing some improvement in this peroneal nerve palsy issue. On the right side, she has obvious discomfort with any attempted movement about the right hip. However, there is no obvious shortening or rotational deformity and the hip seems to be still well aligned. The right knee demonstrates satisfactory alignment and no significant localized discomfort. The right lower leg, foot and ankle appear to be normal. X-rays of the right hip reveal the total hip components in unchanged position, which appeared to be well aligned and stable. There is, however, a fracture extending below the subtrochanteric level and extending distally along the medial cortical border. There are a few millimeters of displacement. The femoral stem is still secure and intact in the canal with about the distal one-third of the stem still with good surrounding cortical bone. IMPRESSION AND PLAN: Periprosthetic fracture, right proximal femur. We have discussed this at some length today. I have explained that surgical repair and reconstruction is most appropriate and we have discussed either simply repairing the fracture with a plate and cerclage cables or removal of the current femoral stem and replacement with a larger or longer stem if necessary. She states she understands these options and in general would prefer the least aggressive option hoping to avoid removing the entire component if possible. I have explained that the surgical decision making will have to occur at the time of surgery when we see how much fixation remains and whether the femoral component appears tight in the canal or not. If it is not, then I think a revision to a larger or a longer stem will be necessary if the component is still stable and the minimally displaced fracture can be realigned and secured anatomically, then we might be able to preserve the current stem. She understands this and agrees to press ahead with plans for surgery tomorrow. <ELECTRONICALLY SIGNED> By: Carl Borrego MD 09/14/192031 04 15 Carl Borrego MD /nt
[2019-09-14 21:15] LABS: HEMATOCRIT 30.8 % (37.0-47.0); HEMOGLOBIN 9.8 gm/dL (12.0-15.0)
[2019-09-14 21:45] VITALS: BP 130/76
[2019-09-14 21:59] VITALS: BP 128/78
[2019-09-14 23:00] VITALS: BP 112/91
[2019-09-14 23:08] VITALS: BP 114/78
[2019-09-15] VITALS (10 sets, daily range): BP systolic 82–146; BP diastolic 47–96
--- NOTE | 2019-09-15 03:51 | NUR ---
ASSUMED PT CARE AT 1900. PT RETURNED FROM PACU AROUND 2144. PT WAS VERY DROWSY UPON ARRIVAL. VITALS WERE STABLE, ASSESSMENT WNL. WHEN PT WOKE UP SOME AROUND 2330, SHE WAS HOLLERING IN PAIN AND HAD MUSCLE SPASMS. PO PAIN MEDS AND MUSCLE RELAXANT GIVEN, PROVIDED NO RELIEF. PT BP SLOWLY TRENDING DOWN, SHELTER DIRECTOR CALLED AND SAID IT WAS OK TO GIVE IV PAIN MEDS DESPITE BP. PT FINALLY RELAXED AND WAS ABLE TO FALL ASLEEP. MORRIS PATENT WITH GOOD OUTPUT. PT ABLE TO WEAN OFF O2, NOW ON ROOM AIR. RIGHT EXTREMITY DRESSING D/C/I. HEMOVAC WITH 125CC OUTPUT THUS FAR. SPOKE TO MOM AND BROTHER AND PROVIDED AN UPDATE. PT CURRENTLY RESTING IN BED WITH CALL LIGHT IN REACH.
[2019-09-15 05:39] LABS: HEMATOCRIT 23.3 % (37.0-47.0); MCH 28.4 pg (26.0-34.0); MCHC 31.8 g/dL (28.0-37.0); MCV 89.3 fL (80.0-100.0); RBC 2.61 mil/uL (4.20-5.00); RDW 18.6 % (10.5-14.5); WBC 4.3 thou/uL (4.0-11.0)
[2019-09-15 05:54] LABS: HEMOGLOBIN 7.4 gm/dL (12.0-15.0)
[2019-09-15 05:59] LABS: CALCIUM 7.9 mg/dL (8.5-10.1); CREATININE 0.6 mg/dL (0.6-1.0); POTASSIUM 4.2 mmol/L (3.5-5.1)
--- NOTE | 2019-09-15 10:25 | NUR ---
Nutrition: Received consult for eval, pt with low albumin. Admit: fracture of R femur. 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 Along with fracture, stated loosened failed total R hip arthroplasty. Pt s/p L hip replacement 03/2019, R hip replacement 08/2019. Is s/p ORIF of R femur and revision of R THR. Diet advanced to regular this AM with orders placed for Ensure Enlive BID. Visited pt, but pt noted to be incredibly emotional/tearful, crying out, thus did not proceed w/ interview. Nutrition screen denied wt loss or change in appetite. Incredibly stable wt x 6 mo, 170# per 02/2019, 170# per 09/2019. No wounds, skin intact and pt ate well when here last month. Low albumin could likely be attributed to recent trauma from fall and presence of any swelling or inflammation. All lytes for K+, Mag, Phos WNL. Do note critical low vitamin D at 8 ng/ml per August labs. REC vitamin D supplement. Will follow po trends as they become available and reassess again if found insufficient at LOS.
[2019-09-15 14:27] LABS: HEMOGLOBIN 6.9 gm/dL (12.0-15.0); WBC 4.8 thou/uL (4.0-11.0)
[2019-09-15 14:29] LABS: HEMATOCRIT 21.4 % (37.0-47.0); MCH 28.5 pg (26.0-34.0); MCHC 32.2 g/dL (28.0-37.0); MCV 88.5 fL (80.0-100.0); RBC 2.42 mil/uL (4.20-5.00); RDW 18.8 % (10.5-14.5)
--- NOTE | 2019-09-15 17:52 | O ---
[facility] [place] [address] OPERATIVE REPORT Name: MELINA HUERTA Room #: 440-P ADM IN M.R.#: [id number] Admission: 09/13/19 Attend Phys: Luciano Cross, Discharge: Date of : 56 Report #: [id number] THIS REPORT FOR: cc: Quoc Zheng MD, Mark S. MD Clymer, David J. MD ~ CC: Chelsie Zheng DATE OF SERVICE: 09/14/2019 PREOPERATIVE DIAGNOSIS: Complex fracture, right proximal femur with loosened failed total hip arthroplasty. POSTOPERATIVE DIAGNOSIS: Complex fracture, right proximal femur with loosened failed total hip arthroplasty. PROCEDURE: Open reduction and internal fixation, right proximal femur fracture with trochanteric plate and 8 cerclage cables and revision of right total hip arthroplasty with long revision femoral stem. SURGEON: Carl Borrego MD INDICATIONS FOR PROCEDURE: This is a 59-year-old female who underwent right total hip replacement 4 weeks ago. She tolerated that procedure well and was home and making good progress. Unfortunately, she has poor strength and poor balance and apparently fell at home on several occasions. Her most recent fall resulted in a new injury to the right femur. She came to the Emergency Department where x-rays confirmed a spiral peritrochanteric fracture in the proximal one-third of the femur. This results in loosening of the femoral stem and obvious displacement, although the hip remained reduced in acceptable alignment. We discussed treatment options and elected to go ahead with revision surgery planning to include ORIF of the proximal femur fracture and revision of the femoral stem to a longer stem with some distal intramedullary purchase and stability. DESCRIPTION OF PROCEDURE: The patient was taken to the operating room where she was placed under general anesthesia. She was positioned in the left lateral decubitus position. The right hip, thigh and leg were meticulously prepped and draped. Preoperative intravenous antibiotics including both Ancef and vancomycin were given. A longitudinal skin incision made through the old surgical scar exposing the hip joint and the lateral aspect of the femur down to the mid shaft. The fracture was found to be a long spiral oblique fracture with moderate instability. The fracture was initially realigned and then secured [address] [address] OPERATIVE REPORT Name: MELINA HUERTA CHERIE Room #: 440-P [facility] IN ..#: [id number] Admission: 09/13/19 Attend Phys: Luciano Cross, Discharge: Date of : 56 Report #: [id number] with several bone clamps to protect the fracture and avoid extension. Once this was accomplished, the posterior aspect of the hip was dissected and visualized. The femoral head and acetabulum were still in good position. The posterior aspect of the hip was opened and the capsule taken down and the hip dislocated posteriorly. The head was removed and appeared to be in good shape without any apparent damage. This was set aside in antibiotic solution, anticipating that it might be used again in the reconstruction. The femoral prosthesis was still in acceptable position, but I believe it has probably been driven distally somewhat at the time of the fracture. The stem was removed without much difficulty. I felt that she clearly needed a new longer stem to establish adequate stability. At this point, fixation of the fracture was accomplished using an 8 cable trochanteric plate. The Morillo [employer] Nephew 8 cable accord standard trochanteric digital color press operator plate was selected. The plate is 195 mm in length and it seemed to expand beyond the area of fracture. It was secured with multiple bone clamps and position checked with C-arm and appeared to be acceptable. The reduction of the fracture seemed to be anatomic. This was then secured with 8 cerclage cables, which were passed around the shaft and up to the level of the lesser trochanter and then through the plate, the cables were sequentially tightened and the locking clamps tightened down providing excellent fixation of the fracture. Position was assessed with C-arm views and was felt to be excellent. Attention was then directed back to the canal, which was then reamed using the Morillo and Nephew long straight reamers. This was advanced to a size 13 mm reamer size. A trial stem was placed using the size 13, 190 mm length [place] porous straight stem. This trial stem seemed to fit quite nicely and accomplished a good length and stability. A trial reduction was performed with a trial head and once again a +8 mm neck length fit quite nicely and the hip seemed to be well reduced and stable with this trial implant in place. The trial stem was removed and the permanent size 13, 190 mm length [place] porous straight stem utilizing the Morillo and Nephew system was selected. This was impacted in the canal. It seated nicely and the calcar shelf seated nicely on the previously planed calcar and appeared to be in unchanged satisfactory position. The previously saved 8 mm x 32 mm Oxinium head was impacted on to the Mooney taper. It seated nicely and appeared to be secure. The hip was reduced. Alignment, range of motion and stability appeared to be satisfactory. A C-arm views were accomplished which demonstrated good position of the components and a satisfactory alignment and fixation of the fracture. The fracture is no longer visible and appears to be anatomically realigned on these views. The entire wound was copiously irrigated. The fascia of the vastus lateralis was closed using #1 Vicryl. One Hemovac was placed deep to the fascia exiting through a separate stab incision. The capsule and posterior short external rotators were repaired using #1 FiberWire suture. This resulted in excellent hip joint stability. The fascia was then closed with multiple #1 Vicryl sutures. A second Hemovac was left fascia in the adipose tissues. The adipose [address] [address] OPERATIVE REPORT Name: MELINA HUERTA Room #: 440-P [facility] IN ..#: [id number] Admission: 09/13/19 Attend Phys: Luciano Cross, Discharge: Date of : 56 Report #: [id number] tissues and subcutaneous tissues were then closed with several running 0 Monocryl sutures. The skin was closed with skin jl. A sterile dressing was applied. The patient was then awakened and returned to recovery room in good condition. <ELECTRONICALLY SIGNED> By: Carl Borrego MD 09/15/19 1752 Carl Borrego MD /nt
--- NOTE | 2019-09-15 20:14 | NUR ---
PT CARE ASSUMED AT 0700. A&Ox4. PT IS IN NOSTOP PAIN AND EVEN AFTER HAVING HER PAIN MEDICATIONS SHE IS IN 10/10 PAIN. RN TRIED TO ADJUST PT SINCE SHE IS NOT MOVING AND PT SCREAMED OUT IN PAIN. WHEN PT STATED SHE WAS IN PAIN I WOULD GET HER PAIN MEDICATION AND WHEN GING INTO THE ROOM SHE WOULD BE ASLEEP. IV IS PATENT WITH NO REDNESS OR EDEMA. HBG 6.9. IV FLUIDS INFUSING. PT WAS NOT ABLE TO WORK WITH PATIENT DUE TO HER PAIN. FALL PROTOCOL IN PLACE. WILL CONTINUE TO MONITOR. REPORT GIVEN TO RNFANNY
--- NOTE | 2019-09-15 22:37 | NUR ---
ASSUMED PT CARE AT APPROX 1900.PT WAS OBSERVED SITTING UP ON HER BED IN PAIN.PT REPOSITIONED TO MAKE HER COMFORTABLE BUT SHE SCREAMED OUT IN PAIN.MED ADMINISTERED FOR PAIN.PT NOTED TO HAVE TEMP OF 100.6,TYLENOL GIVEN.BLE EDEMA NOTED.L HAND BRACE IN PLACE.DRSG ON HER R HIP C/D/I WITH A SMALL DRAINGE. HEMOVAC AND MORRIS CATH IN PLACE.SCD TO HER BLE.DR GONSALES PUT IN ORDER TO TRANSFUSE FOR HGB OF 6.9 AND TO TRANSFER PT TO A TELEMETRY BED.PT'S BROTHER CALLED, HE WAS UPDATED ON PT'S CONDITION AND HER TRANSFER TO RM 460.PT'S BROTHER WANTS TO BE UPDATED ON THE NEURO CONSULT TOMORROW.PT WAS FINALLY TRANSFERRED TO RM 460 AT 2200.REPORT GIVEN TO THE RN TAKING CARE OF HER.
[2019-09-16 05:23] LABS: HEMATOCRIT 25.4 % (37.0-47.0); HEMOGLOBIN 8.3 gm/dL (12.0-15.0); MCH 28.7 pg (26.0-34.0); MCHC 32.5 g/dL (28.0-37.0); MCV 88.3 fL (80.0-100.0); RBC 2.87 mil/uL (4.20-5.00); RDW 18.5 % (10.5-14.5)
[2019-09-16 06:08] LABS: CALCIUM 7.7 mg/dL (8.5-10.1); CREATININE 0.5 mg/dL (0.6-1.0); POTASSIUM 4.1 mmol/L (3.5-5.1)
--- NOTE | 2019-09-16 06:41 | NUR ---
VSS-FEBRILE OVERNIGHT. C/O SIGNIFICANT RIGHT HIP PAIN, PARTIAL RELIEF NOTED WITH ALTERNATING PO AND IV PAIN MEDICATIONS. HEMOVAC DRAINED M50ML SANGUINEOUS FLUID. RIGHT HIP DRESSING HAS 1 DRY SPOT OF SHADOW DRAINAGE. TURNED EVERY TWO HOURS FOR COMFORT. ENCOURAGE HOURLY USE OF INCENTIVE SPIROMETER LUNGS ARE TIGHT AND DIMINISHED. VERBALIZED UNDERSTANDING AND DEMONSTRATED CORRECT USE OF INCENTIVE SPIROMETER. 1 UNIT PRBC INFUSED OVERNIGHT, TOLERATED WELL. FALL PRECAUTIONS IN PLACE, CALLS APPROPRIATELY FOR ANY NEEDED ASSISTANCE.
[2019-09-16 08:00] VITALS: BP 108/66
[2019-09-16 15:15] VITALS: BP 104/63
--- NOTE | 2019-09-16 18:13 | NUR ---
ASSUMED CARE AT 0700. PT ALERT AND ORIENTED. C/O PAIN. VSSA/RA. FEBRILE OVER NOC. LUNG SOUNDS WHEEZE, ENCOURAGE IS. NSR ON TELE. MORRIS IN PLACE, DRAINING WELL. NO BM. TOLERATING PO. PIV INFUSING WITHOUT ISSUES. HEMOVAC REMOVED THIS AFTERNOON WITHOUT BLEEDING WITHOUT COMPLICATIONS. RADHA DRESSING INTACT WITH OLD DRAINAGE NOTED. PT WORKING WITH PT, UNABLE TO DO MUCH TODAY DUE TO PAIN. FALL PRECAUTIONS IN PLACE, CALL LIGHT IN REACH. WILL CONTINUE TO MONITOR.
[2019-09-16 19:29] VITALS: BP 117/69
--- NOTE | 2019-09-17 02:57 | NUR ---
ASSUMED PT CARE AROUND 1930. AXOX4. PERSISTENT PAIN TO FEET AND R HIP. MEDICATED PER MD ORDER. R HIP DRESSING WITH OLD DRAINAGE BUT DRY AND INTACT. VSS. NO S/S ACUTE DISTRESS NOTED OR REPORTED AT THIS TIME. WILL CONT TO MONITOR FOR ANY CHANGES IN CONDITION.
[2019-09-17 03:48] VITALS: BP 109/56
[2019-09-17 06:51] LABS: HEMATOCRIT 23.6 % (37.0-47.0); HEMOGLOBIN 7.6 gm/dL (12.0-15.0); MCH 28.6 pg (26.0-34.0); MCHC 32.4 g/dL (28.0-37.0); MCV 88.4 fL (80.0-100.0); RBC 2.67 mil/uL (4.20-5.00); RDW 18.8 % (10.5-14.5); WBC 4.8 thou/uL (4.0-11.0)
[2019-09-17 08:24] VITALS: BP 118/74
[2019-09-17 15:12] VITALS: BP 96/62
--- NOTE | 2019-09-17 15:57 | NUR ---
Assumed pt care this am, pain managed with medication with partial relief noted. Both legs are edematous especially the right leg. Pain is managed with medication, pt was able to work with PT and has been on the recliner for most of the afternoon. Supplements are well tolerated, hydration and nutrition encouraged. Right hip gianluca dressing w/ old dried drainage and intact. SCD'd on , POC followed, client and medications are tolerated well. Pt would shrill at the slightest tough or movement of her leg, pt refused to be turned q2. FC in place draining light yellow urine. AZAM zaman refused d/t neuropathy, fall p[recautions in place.
[2019-09-17 17:59] LABS: % SATURATION 8 % (20-39); IRON 14 ug/dL (50-170); TIBC 170 ug/dL (250-450)
[2019-09-17 20:38] VITALS: BP 136/75
[2019-09-18 05:39] LABS: HEMATOCRIT 23.8 % (37.0-47.0); HEMOGLOBIN 7.7 gm/dL (12.0-15.0); MCHC 32.4 g/dL (28.0-37.0); MCV 89.5 fL (80.0-100.0); RBC 2.66 mil/uL (4.20-5.00); WBC 3.7 thou/uL (4.0-11.0)
[2019-09-18 05:59] LABS: ALBUMIN 2.2 g/dL (3.4-5.0); CALCIUM 8.1 mg/dL (8.5-10.1); CREATININE 0.4 mg/dL (0.6-1.0); PHOSPHORUS 3.7 mg/dL (2.5-4.9); POTASSIUM 3.9 mmol/L (3.5-5.1)
[2019-09-18 09:36] VITALS: BP 108/63
[2019-09-18 14:06] LABS: IgA 131 mg/dL (87-352); IgG 1213 mg/dL (586-1602); IgM 68 mg/dL (26-217)
[2019-09-18 16:38] VITALS: BP 114/72
--- NOTE | 2019-09-18 18:39 | NUR ---
Assumed patient care at 0715. Vital signs stable, lung sounds clear, diminished. Abdomen is soft and non-tender, BS x's 4. Patient is on Room Air but uses O2 at 2 Liters per nc at x's for comfort. She is alert and oriented x's 4. Appetite has improved. Patient has a charlton catheter with good output. IV is in right upper arm and is saline locked. Cyn dressing to left hip is dry and intact. Patient denies full pain control with rotation of Oxycodone and Hydromorphone. 2-3+ pitting edema in bilateral feet. Will report to on-coming nurse.
[2019-09-18 19:57] VITALS: BP 114/67
[2019-09-19 07:25] VITALS: BP 123/88
--- NOTE | 2019-09-19 07:33 | NUR ---
VSS-AFEBRILE. INCREASED PAIN OVERNIGHT THAT WAS PARTIALLY RELIEVED WITH PRESCRIBED PAIN MEDICATIONS. TURNED EVERY TWOO HOURS FOR COMFORT, AND ICE PACK PLACED ON RIGHT LATERAL HIP. CALLS APPROPRIATELY FOR ANY NEEDED ASSISTANCE.
[2019-09-19 16:06] VITALS: BP 127/71
--- NOTE | 2019-09-19 17:31 | NUR ---
5N FOLLOWING FOR POSSIBLE ADMISSION. LIMITED BY PAIN. CM FOLLOWING.
--- NOTE | 2019-09-19 19:41 | NUR ---
Assumed patient care at 0715. Vital signs stable, LSCTA, ABD is soft and non-tender. RADHA Dressing intact to right hip. Patient continues to deny any pain relief from her pain medication, PT worked with her today which took much effort. This nurse had premedicated patient for PT. Patient told PT that she needed pain medication, that this nurse did not give her the medication "in a long time." Dr May and Dr Cosby informed of patient's frequent requests for pain medication, especially the Hydromorphone which is given IV push. Both doctors agree that patient does not need an increase in pain medications. Patient is max assist with transfers; she barely assists with this. Report given to on-coming nurse.
[2019-09-19 19:59] VITALS: BP 121/79
[2019-09-20 04:48] VITALS: BP 121/84
[2019-09-20 07:50] VITALS: BP 120/77
--- NOTE | 2019-09-20 07:50 | NUR ---
Assumed pt care at 1900. A/OX4, VSS. C/o severe pain to Right hip not controlled by PO meds,Dilaudid IV given with some relief reported. RLE with edema,moving it with a belt as tolerated ice pack provided as well. RADHA dsg patent. Incentive spirometer use encouraged when awake and pt compliant. SR on telemetry. Fall precautions in place.
[2019-09-20 16:05] VITALS: BP 114/70
--- NOTE | 2019-09-20 16:26 | NUR ---
5N INDICATED PT MORE APPROPRIATE FOR SNF. CM MET [facility] PT AND DTR AND THEY ASKED THAT REFERRAL BE SENT TO [facility]. [facility] CAN ACCEPT AND HAVE SUBMITTED FOR INSURANCE AUTH. AWAITING AUTH FOR SKILLED AT [facility].
[2019-09-20 17:06] LABS: ANTI-DNA SCREEN 2 IU/mL (0-9); ANTI-RNP 0.2 AI (0.0-0.9)
--- NOTE | 2019-09-20 20:04 | NUR ---
Assumed patient care at 0715. Vital signs stable, LSCTA, ABD soft and non-tender, BS x's 4. RADHA Dressing has dried blood on it; it is secured by tape as it was starting to peel off. PT assisted patient from bed to chair this am. He assisted her back to bed after lunch. PT informed Team members that "patient is max assist x's 3." She has been assisted to the commode with 3 Team members. She is able to assist herself to a laying position from sitting on the side of the bed. Patient continues to ask for pain medication frequently, states that it "doesn't help" her pain. She screams out several times throughout the shift upon movement. Report given to on-coming nurse.
[2019-09-21 00:14] VITALS: BP 121/67
--- NOTE | 2019-09-21 00:21 | NUR ---
ASSUMED CARE OF PT AT 1900. PT IS A/O X4. C/O SEVERE PAIN THAT IS CONSTANT. PRN PAIN MEDICATION GIVEN DIRECTED. PT IS UP WITH A MAX OF 3. PT IS UNABLE TO STAND AND PIVOT ON THE RIGHT LEG IT CAUSES TOO MUCH PAIN. PT'S SURGERY DRESSING IS DRY AND INTACT WITH NO DRAINAGE. ICE PACK GIVEN. SCD'S IN PLACE. CURRENTLY PT IS IN HER BED AND APPEARS TO BE SLEEPING. FALL PRECAUTIONS ARE IN PLACE, CALL LIGHT IS WITHIN REACH.
[2019-09-21 07:26] VITALS: BP 127/78
--- NOTE | 2019-09-21 08:05 | NUR ---
PATIENT SEEN BY DR. DILLON FOR REHAB CONSULT ON 09/19/19. AFTER PT/OT SESSION ON 09/20/19 IT WAS DETEREMINED THAT PATIENT WAS NOT A CANDIDATE FOR ACUTE REHAB. SKILLED RECOMMENDED BY TERESA MUHAMMAD NP WITH DR. DILLON. PANAMA HAT SMEARER INFORMED. THANK YOU FOR THIS REFERRAL.
[2019-09-21] MEDS ORDERED: ACETAMINOPHEN325 M1 PO (12:08)
[2019-09-21] MEDS ORDERED: OXYCODONE HCL 55 MG PO (12:09)
--- NOTE | 2019-09-21 20:12 | NUR ---
PATIENT ALERT AND OREINTED DISCHARGED TO [facility] ON [address] IN STABLE CONDITION WITH DISCHARGE PACKED INCLUDING INSTRUCTIONS AND PAIN PRESCRIPTION AND ALL PERSONAL BELONGINGS VIA WHEELCHAIR VAN. REPORT CALLED TO YIFAN OLIVARES. [phone]
== END 2019-09-21 15:51 | DRG 481 ==
LOC: ER 10:42 → 4S 14:07 → EROBS 14:07 → 4S 15:21 → 4W 09-15 22:00
PROVIDERS: Anesthesiology; Emergency Medicine; Hospitalist; Internal Medicine; Orthopaedic Surgery; Psychiatry & Neurology Neurology; Surgery; ADMIT Surgery; ATTEND Surgery
PROC: 0QS604Z Reposition Right Upper Femur with Internal Fixation Device, Open Approach (ICD-10-PCS; principal; 2019-09-14)
PROC: 30233N1 Transfusion of Nonautologous Red Blood Cells into Peripheral Vein, Percutaneous Approach (ICD-10-PCS; 2019-09-15)
DX: T84.030A Mechanical loosening of internal right hip prosthetic joint, initial encounter (principal); E44.0 Moderate protein-calorie malnutrition; F32.9 Major depressive disorder, single episode, unspecified; J45.909 Unspecified asthma, uncomplicated; G25.81 Restless legs syndrome; M19.90 Unspecified osteoarthritis, unspecified site; I10 Essential (primary) hypertension; Z96.643 Presence of artificial hip joint, bilateral; M79.7 Fibromyalgia; Y83.8 Other surgical procedures as the cause of abnormal reaction of the patient, or of later complication, without mention of misadventure at the time of the procedure; H81.09 Meniere's disease, unspecified ear; D64.9 Anemia, unspecified; D69.6 Thrombocytopenia, unspecified; M21.372 Foot drop, left foot; Z20.828 Contact with and (suspected) exposure to other viral communicable diseases; Z87.891 Personal history of nicotine dependence; Y92.89 Other specified places as the place of occurrence of the external cause; Z68.28 Body mass index [BMI] 28.0-28.9, adult; Z79.899 Other long term (current) drug therapy
CPT/HCPCS: 10045; 10102; 50010; 50101; 50382; 50414; 51412; 56525; 57115; 58135; 58136; 58137; 58138; 62110; 62900; 70005

== ENCOUNTER → 2021-01-11 | Outpatient (CLI) | payer OTHER ==
[~2021-01-11] VITALS: Ht 162.6 cm; Wt 84.8 kg
[~2021-01-11] MED LIST changes: +ACETAMINOPHEN325 M1 PO; +ASA81BEC PO; +NORCO 10-325 T1 EACH PO; +OXYCODONE HCL 55 MG PO
[2021-01-11 14:18] VITALS: BP 141/74
--- NOTE | 2021-01-11 16:04 | NUR ---
ARRIVED AMBULATORY USING WALKER FOR FIRST DOSE OF DAPTOMYCIN. PATIENT CURRENTLY ON VANCO WITH HOME INFUSION. SAW DR. BRITO TODAY IN OFFICE AND HE IS CHANGING PATIENT'S ANTIBIOTIC REQUESTING LAB AND FIRST DOSE IN HOSPITAL. PATIENT HAS PICC LINE WHICH FLUSHES [id number]. UNABLE TO DRAW BLOOD. CATH ZE PLACED IN PICC LINE FOR ONE HOUR AND BRISK BLOOD RETURN OBTAINED. CPK DRAWN AND SENT TO LAB. DAPTOMYCIN 500 MG GIVEN IV AND PATIENT TOLERATED WELL. PATIENT HAS HAD 3 SURGERIES TO RIGHT HIP SINCE AUGUST OF 2019. HAVING SIGNIFICANT PAIN TODAY AND WILL TAKE PAIN MEDICATION WHEN SHE RETURNS HOME. HAS RESTLESS LEGS AND SHE MASSAGED LEGS DURING HER TIME HERE IN THE CLINIC. PICC LINE FLUSHED EASILY AFTER CATH FLOW. EXTENSION TUBING PLACED FOR HOME INFUSION. DC TO HOME IN WHEELCHAIR WITH VOLUNTEER. TEACHING MATERIAL GIVEN ON DAPTOMYCIN. VERBALIZED UNDERSTANDING OF ALL TEACHING DONE. CPK TO BE FAXED TO [facility]S OFFICE WHEN RESULTED.
== END ==
LOC: OPONC 12:49
PROVIDERS: ATTEND Specialist
DX: T84.51XA Infection and inflammatory reaction due to internal right hip prosthesis, initial encounter (principal); Y83.8 Other surgical procedures as the cause of abnormal reaction of the patient, or of later complication, without mention of misadventure at the time of the procedure
CPT/HCPCS: 95000